=== PATIENT | female | born 1995 | race American Indian/Alaskan Native ===

== ENCOUNTER 2020-01-26 12:51 | Emergency (ER) | payer SELFPAY ==
--- NOTE | 2020-01-26 13:15 | Emergency Department Report ---
Blank Doc - Documentation Documentation: 24-year-old female that presents with dizziness, left abdominal pain with n/v. Stated is about 8 weeks with no vaginal bleeding. This initial assessment/diagnostic orders/clinical plan/treatment(s) is/are subject to change based on patient's health status, clinical progression and re- assessment by fellow clinical providers in the ED. Further treatment and workup at subsequent clinical providers discretion. Patient/guardians urged not to elope from the ED as their condition may be serious if not clinically assessed and managed. Initial orders include: 1- Patient sent to [facility] for further evaluation and treatment 2- labs 3- UA 4- US OB/ABD
[2020-01-26 13:18] VITALS: BP 117/69
[2020-01-26 15:32] LABS: Basophils % (Auto) 0.5 % (0.0-1.8); Eosinophils % (Auto) 0.3 % (0.0-4.3); Hematocrit 36.4 % (30.3-42.9); Hemoglobin 12.9 gm/dl (10.1-14.3); Lymphocytes # (Auto) 1.8 K/mm3 (1.2-5.4); Lymphocytes % (Auto) 28.9 % (13.4-35.0); Mean Corpuscular HGB Conc 35 % (30-34); Mean Corpuscular Volume 98 fl (79-97); Monocytes # (Auto) 0.8 K/mm3 (0.0-0.8); Monocytes % (Auto) 12.6 % (0.0-7.3); Platelet Count 213 K/mm3 (140-440); Red Blood Count 3.73 M/mm3 (3.65-5.03); Red Cell Distribution Width 13.4 % (13.2-15.2)
[2020-01-26 15:52] LABS: Alanine Aminotransferase 10 units/L (7-56); Albumin 4.6 g/dL (3.9-5); Blood Urea Nitrogen 5 mg/dL (7-17); Calcium 9.6 mg/dL (8.4-10.2); Hemolysis Index 13
[2020-01-26 15:54] LABS: BUN/Creatinine Ratio 8
[2020-01-26] MEDS ORDERED: ONDANSETRON 4 MG ODT TAB PO ONE (16:14)
--- NOTE | 2020-01-26 16:15 | Emergency Department Report ---
ED General Adult HPI - General Chief complaint: Chest Pain Stated complaint: CHEST PAIN/VOMITING/DIZZY Time Seen by Provider: 01/26/20 13:12 Source: patient Mode of arrival: Ambulatory Limitations: No Limitations - History of Present Illness Initial comments: The patient was evaluated in the emergency department for symptoms described in the history of present illness. He/she was evaluated in the context of the global COVID-19 pandemic, which necessitated consideration that the patient might be at risk for infection with the virus that causes COVID-19. Institutional protocols and algorithms that pertain to the evaluation of patients at risk for COVID-19 are in a state of rapid change based on information released by regulatory bodies including the CDC and federal and state organizations. These policies and algorithms were followed during the patient's care in the emergency department. Please note that these policies, procedures and recommendations changed on a rapid basis. 24-year-old female presents to the emergency room for left upper rib pain x4 days. Patient reports she has nausea vomiting and diarrhea. Patient reports that she did a home test yesterday that stated she was . Patient reports no known status as she has a history of PCOS and often will have irregular menses. Patient is 2 para 1. Patient states eating and drinking and vomiting makes her upper rib pain worse. Patient denies any pelvic pain no dysuria no urinary frequency no vaginal bleeding or vaginal discharge. Patient reports she stopped smoking weed about 1 week ago. Onset/Timin -: days(s) Severity scale (0 -10): 10 - Related Data Previous Rx's Medication Instructions Recorded Last Taken Type Acetaminophen/Codeine [Tylenol #3] 1 tab PO Q6H PRN #12 tab 05/27/16 Unknown Rx Ibuprofen [Motrin] 600 mg PO Q8H PRN #15 tablet 05/27/16 Unknown Rx methOCARBAMOL [Robaxin TAB] 500 mg PO Q6H PRN #15 tablet 05/27/16 Unknown Rx Ondansetron [Zofran Odt] 4 mg PO Q8HR PRN #12 tab.rapdis 01/26/20 Unknown Rx Vit-Fe Fumar-FA [ 1 tab PO QDAY #90 tablet 01/26/20 Unknown Rx Vitamin] Allergies Allergy/AdvReac Type Severity Reaction Status Date / Time penicillin Allergy Unknown Verified 01/26/20 13:16 Sulfa (Sulfonamide Allergy Unknown Verified 01/26/20 13:16 Antibiotics) ED Review of Systems ROS: Stated complaint: CHEST PAIN/VOMITING/DIZZY Other details as noted in HPI ED Past Medical Hx - Past Medical History Hx Hypertension: No Hx CVA: No Hx Heart Attack/AMI: No Hx Congestive Heart Failure: No Hx Pulmonary Embolism: No Hx Renal Disease: No Hx Sickle Cell Disease: No Hx Headaches / Migraines: No Hx Kidney Stones: No Hx Psychiatric Treatment: No Hx Asthma: No Hx COPD: No Hx Tuberculosis: No Hx Dementia: No Hx HIV: No - Social History Smoking Status: Never Smoker Substance Use Type: None - Medications Home Medications: Home Medications Medication Instructions Recorded Confirmed Last Taken Type Acetaminophen/Codeine [Tylenol #3] 1 tab PO Q6H PRN #12 tab 05/27/16 Unknown Rx Ibuprofen [Motrin] 600 mg PO Q8H PRN #15 tablet 05/27/16 Unknown Rx methOCARBAMOL [Robaxin TAB] 500 mg PO Q6H PRN #15 tablet 05/27/16 Unknown Rx Ondansetron [Zofran Odt] 4 mg PO Q8HR PRN #12 tab.rapdis 01/26/20 Unknown Rx Vit-Fe Fumar-FA [ 1 tab PO QDAY #90 tablet 01/26/20 Unknown Rx Vitamin] ED Physical Exam - General Limitations: No Limitations ED Course Vital Signs 01/26/20 13:18 Temperature 99 F Pulse Rate 87 Respiratory 18 Rate Blood Pressure 117/69 [Right] O2 Sat by Pulse 100 Oximetry - Reevaluation(s) Reevaluation #1: 01/26/20 18:18 Patient reports she is feeling much better after having fluids. Patient is requesting something to eat and drink. ED Medical Decision Making - Lab Data Result diagrams: 01/26/20 15:17 01/26/20 15:17 - Medical Decision Making 24-year-old female presents to the emergency room for left upper rib pain x4 days. Patient reports she has nausea vomiting and diarrhea. Patient reports that she did a home test yesterday that stated she was . Patient reports no known status as she has a history of PCOS and often will have irregular menses. Patient is 2 para 1. Patient states eating and drinking and vomiting makes her upper rib pain worse. Patient denies any pelvic pain no dysuria no urinary frequency no vaginal blee ding or vaginal discharge. Patient reports she stopped smoking weed about 1 week ago. Critical care attestation.: If time is entered above; I have spent that time in minutes in the direct care of this critically ill patient, excluding procedure time. ED Disposition Clinical Impression: Nausea vomiting and diarrhea, , Dehydration Disposition: [id number] TO HOME OR SELFCARE Is pt being admited?: No Does the pt Need Aspirin: No Condition: Stable Instructions: Acute Nausea and Vomiting (ED) Additional Instructions: Please increase your fluid intake advance your diet as tolerated. Take the Zofran as needed for the nausea and vomiting. Follow-up with your [facility] I have listed several below for your convenience. Remember you can only take Tylenol for pain or fever. Prescriptions: Vit-Fe Fumar-FA [ Vitamin] 1 tab PO QDAY #90 tablet Ondansetron [Zofran Odt] 4 mg PO Q8HR PRN #12 tab.rapdis PRN Reason: Nausea And Vomiting Referrals: PRIMARY CARE, [Primary Care Provider] - 3-5 Days [facility] [Provider Group] - 3-5 Days [facility] [Provider Group] - 3-5 Days [facility] [Provider Group] - 3-5 Days
[2020-01-26 16:45] LABS: Bilirubin,Urine NEG (Negative); Blood,Urine NEG (Negative); Color,Urine Yellow (Yellow); Mucus,Urine 3+ /HPF
[2020-01-26] MEDS ORDERED: SODIUM CHLORIDE 0.9% 1000 ML 1,000 ML IV ONE (17:03)
== END 2020-01-26 18:49 | disposition home or self-care (01) ==
LOC: ED 12:51
DX: O21.8 Other vomiting complicating pregnancy (principal); O99.611 Diseases of the digestive system complicating pregnancy, first trimester; E86.0 Dehydration; R19.7 Diarrhea, unspecified; Z3A.01 Less than 8 weeks gestation of pregnancy; Z79.899 Other long term (current) drug therapy; Z88.0 Allergy status to penicillin; Z88.2 Allergy status to sulfonamides
CPT/HCPCS: 36415; 80053; 81001; 83690; 84702; 85025; 96360; 99283; J7030; Q0162